=== PATIENT | female | born 1995 | race African-American/Black ===

== ENCOUNTER 2017-10-22 10:16 | Emergency (ER) | payer OTHER ==
[~2017-10-22] VITALS: Ht 160 cm; Wt 86.2 kg
[~2017-10-22 10:16] MED LIST: CIPRO500 MG PO; NAPROSYN500 MG PO; TYLENOL EX-STR500 M2 PO
[2017-10-22 11:04] LABS: ABSOLUTE NEUTROPHILS 9.3 thou/uL (1.4-8.2); BASOPHILS 0.6 % (0.0-2.0); EOSINOPHILS 0.8 % (0.0-3.0); HEMATOCRIT 40.1 % (37.0-47.0); HEMOGLOBIN 12.5 gm/dL (12.0-15.0); LYMPHOCYTES 20.6 % (24.0-44.0); MCH 24.6 pg (26.0-34.0); MCHC 31.2 g/dL (28.0-37.0); MCV 78.9 fL (80.0-100.0); MONOCYTES 5.9 % (1.0-8.0); POLYS 72.1 % (36.0-66.0); RBC 5.08 mil/uL (4.20-5.00); RDW 14.3 % (10.5-14.5); WBC 13.6 thou/uL (4.0-11.0)
[2017-10-22 11:08] LABS: URINE BILIRUBIN NEGATIVE (Negative); URINE BLOOD NEGATIVE (Negative); URINE COLOR YELLOW; URINE GLUCOSE-RANDOM* NEGATIVE (Negative); URINE KETONES NEGATIVE (Negative); URINE LEUKOCYTES-REFLEX NEGATIVE (Negative); URINE PROTEIN (DIPSTICK) NEGATIVE (Negative); URINE UROBILINOGEN 0.2 E.U./dl (0.2-1.0)
[2017-10-22 11:10] LABS: MANUAL DIFF NO
[2017-10-22 11:11] LABS: CALCIUM 9.2 mg/dL (8.5-10.1); CREATININE 0.8 mg/dL (0.6-1.0); POTASSIUM 4.1 mmol/L (3.5-5.1)
[2017-10-22 11:17] LABS: ALBUMIN 3.7 g/dL (3.4-5.0); TOTAL BILIRUBIN 0.2 mg/dL (<0.1-1.0); TOTAL PROTEIN 7.6 g/dL (6.4-8.2)
[2017-10-22 12:15] LABS: PLATELET COUNT 215 thou/uL (150-400)
[2017-10-22] MEDS ORDERED: BENTYL 20 MG TA20 M1 PO (12:35)
[2017-10-22] MEDS ORDERED: ZOFRAN ODT4 M1 PO (12:35)
[2017-10-22 13:15] VITALS: BP 114/78
== END 2017-10-22 13:15 | disposition home or self-care (01) ==
LOC: ER 10:16
PROVIDERS: Physician Assistant
DX: R10.30 Lower abdominal pain, unspecified (principal); F17.210 Nicotine dependence, cigarettes, uncomplicated

== ENCOUNTER 2018-10-29 15:46 | Emergency (ER) | payer OTHER ==
[~2018-10-29] VITALS: Ht 157.5 cm; Wt 78.6 kg
[~2018-10-29 15:46] MED LIST changes: +BENTYL 10 MG CA10 M1 PO; +BENTYL 20 MG TA20 M1 PO; +ONDANSETRON HCL4 M2 PO; +ZOFRAN ODT4 M1 PO
[2018-10-29 16:32] LABS: ABSOLUTE NEUTROPHILS 13.9 thou/uL (1.4-8.2); BASOPHILS 0.2 % (0.0-2.0); EOSINOPHILS 0.1 % (0.0-3.0); HEMATOCRIT 38.8 % (37.0-47.0); HEMOGLOBIN 12.5 gm/dL (12.0-15.0); LYMPHOCYTES 5.3 % (24.0-44.0); MCH 25.7 pg (26.0-34.0); MCHC 32.3 g/dL (28.0-37.0); MCV 79.6 fL (80.0-100.0); MONOCYTES 3.2 % (1.0-8.0); PLATELET COUNT 249 thou/uL (150-400); POLYS 91.2 % (36.0-66.0); RBC 4.88 mil/uL (4.20-5.00); RDW 15.1 % (10.5-14.5); WBC 15.2 thou/uL (4.0-11.0)
[2018-10-29 16:38] LABS: CALCIUM 8.9 mg/dL (8.5-10.1); CREATININE 0.7 mg/dL (0.6-1.0); POTASSIUM 3.5 mmol/L (3.5-5.1)
[2018-10-29 16:44] LABS: ALBUMIN 3.5 g/dL (3.4-5.0); TOTAL BILIRUBIN 0.4 mg/dL (<0.1-1.0); TOTAL PROTEIN 7.3 g/dL (6.4-8.2)
[2018-10-29 17:05] LABS: URINE CLARITY CLEAR; URINE COLOR YELLOW; URINE GLUCOSE-RANDOM* NEGATIVE (Negative); URINE KETONES 2+ (Negative); URINE PROTEIN (DIPSTICK) NEGATIVE (Negative)
[2018-10-29 17:06] LABS: URINE BILIRUBIN NEGATIVE (Negative); URINE BLOOD NEGATIVE (Negative); URINE LEUKOCYTES-REFLEX TRACE (Negative); URINE NITRITE-REFLEX NEGATIVE (Negative); URINE UROBILINOGEN 0.2 E.U./dl (0.2-1.0)
[2018-10-29 17:11] LABS: AMP/METHAMP Negative (Negative); BARBITURATES Negative (Negative); BENZODIAZEPINES Negative (Negative); COCAINE Negative (Negative); METHADONE Negative (Negative); OPIATES Negative (Negative); PCP Negative (Negative)
[2018-10-29] MEDS ORDERED: FLAGYL500 M1 PO (21:01)
[2018-10-29 21:19] VITALS: BP 107/60
== END 2018-10-29 21:19 | disposition home or self-care (01) ==
LOC: ER 15:46
PROVIDERS: Physician Assistant
DX: R11.2 Nausea with vomiting, unspecified (principal); O36.4XX0 Maternal care for intrauterine death, not applicable or unspecified; O23.591 Infection of other part of genital tract in pregnancy, first trimester; O26.891 Other specified pregnancy related conditions, first trimester; A59.01 Trichomonal vulvovaginitis; R10.9 Unspecified abdominal pain; Z3A.08 8 weeks gestation of pregnancy; F17.210 Nicotine dependence, cigarettes, uncomplicated

== ENCOUNTER 2018-11-03 11:51 | Emergency (ER) | payer OTHER ==
[~2018-11-03] VITALS: Ht 160 cm; Wt 72.6 kg
[~2018-11-03 11:51] MED LIST changes: +FLAGYL500 M1 PO
[2018-11-03 12:12] LABS: URINE CLARITY HAZY; URINE COLOR YELLOW; URINE GLUCOSE-RANDOM* NEGATIVE (Negative); URINE KETONES TRACE (Negative); URINE PROTEIN (DIPSTICK) TRACE (Negative); URINE SPECIFIC GRAVITY 1.025 (1.005-1.035)
[2018-11-03 12:13] LABS: URINE BILIRUBIN NEGATIVE (Negative); URINE BLOOD 3+ (Negative); URINE LEUKOCYTES-REFLEX NEGATIVE (Negative); URINE NITRITE-REFLEX NEGATIVE (Negative)
[2018-11-03 12:18] LABS: SQUAMOUS 0-3 Few /LPF (0-3); URINE WBC-REFLEX 0-5 Rare /HPF (0-5)
[2018-11-03 12:19] LABS: CASTS None Seen /LPF (None Seen); CRYSTALS None Seen /LPF (None Seen); MUCUS 0-3 Light strn/LPF (None Seen); URINE RBC >20 Many /HPF (0-2)
[2018-11-03 12:29] LABS: ABSOLUTE NEUTROPHILS 8.3 thou/uL (1.4-8.2); BASOPHILS 0.8 % (0.0-2.0); EOSINOPHILS 0.5 % (0.0-3.0); HEMATOCRIT 40.7 % (37.0-47.0); HEMOGLOBIN 12.9 gm/dL (12.0-15.0); LYMPHOCYTES 19.9 % (24.0-44.0); MCHC 31.7 g/dL (28.0-37.0); MCV 78.8 fL (80.0-100.0); MONOCYTES 8.4 % (1.0-8.0); PLATELET COUNT 284 thou/uL (150-400); POLYS 70.4 % (36.0-66.0); RBC 5.16 mil/uL (4.20-5.00); RDW 14.9 % (10.5-14.5); WBC 11.8 thou/uL (4.0-11.0)
[2018-11-03 12:37] LABS: CALCIUM 9.2 mg/dL (8.5-10.1); CREATININE 0.7 mg/dL (0.6-1.0); POTASSIUM 3.7 mmol/L (3.5-5.1)
[2018-11-03 15:58] VITALS: BP 112/71
[2018-11-03] MEDS ORDERED: MISOPROSTOL 2200 MC1 PO (16:45)
[2018-11-03] MEDS ORDERED: NORCO 5-325 TA1 EACH PO (16:46)
== END 2018-11-03 19:32 | disposition home or self-care (01) ==
LOC: ER 11:51
PROVIDERS: Physician Assistant
DX: O36.4XX0 Maternal care for intrauterine death, not applicable or unspecified (principal); Z3A.00 Weeks of gestation of pregnancy not specified

== ENCOUNTER 2019-03-31 13:00 | Emergency (ER) | payer OTHER ==
[~2019-03-31] VITALS: Ht 157.5 cm; Wt 68.0 kg
[~2019-03-31 13:00] MED LIST changes: +MISOPROSTOL 2200 MC1 PO; +NORCO 5-325 TA1 EACH PO
[2019-03-31 14:20] VITALS: BP 109/65
[2019-03-31] MEDS ORDERED: IBUPROFEN 600600 M1 PO (14:20)
== END 2019-03-31 14:20 | disposition home or self-care (01) ==
LOC: ER 13:00
DX: S80.02XA Contusion of left knee, initial encounter (principal); F17.210 Nicotine dependence, cigarettes, uncomplicated; W01.0XXA Fall on same level from slipping, tripping and stumbling without subsequent striking against object, initial encounter; Y93.89 Activity, other specified; Y92.89 Other specified places as the place of occurrence of the external cause; Y99.8 Other external cause status

== ENCOUNTER 2019-12-21 01:25 | Emergency (ER) | payer OTHER ==
[~2019-12-21] VITALS: Ht 162.6 cm; Wt 90.7 kg
[~2019-12-21 01:25] MED LIST changes: +IBUPROFEN 600600 M1 PO
[2019-12-21] MEDS ORDERED: DAYTIME COLD-F118 ML (01:35)
[2019-12-21] MEDS ORDERED: TRAMADOL 50 MG50 MG PO (02:15)
[2019-12-21] MEDS ORDERED: NAPROSYN500 MG PO (02:15)
[2019-12-21] MEDS ORDERED: TESSALON PERLE100 MG PO (02:15)
[2019-12-21 02:57] VITALS: BP 120/94
== END 2019-12-21 02:57 | disposition home or self-care (01) ==
LOC: ER 01:25
DX: J10.1 Influenza due to other identified influenza virus with other respiratory manifestations (principal); F17.290 Nicotine dependence, other tobacco product, uncomplicated

== ENCOUNTER 2020-01-25 08:26 | Inpatient (IN) | payer OTHER ==
[~2020-01-25] VITALS: Ht 160 cm; Wt 87.1 kg
[~2020-01-25 08:26] MED LIST changes: +DAYTIME COLD-F118 ML; +TESSALON PERLE100 MG PO; +TRAMADOL 50 MG50 MG PO
[2020-01-25 08:37] VITALS: BP 133/97
[2020-01-25 09:07] LABS: URINE BILIRUBIN NEGATIVE (Negative); URINE BLOOD NEGATIVE (Negative); URINE CLARITY CLEAR; URINE COLOR YELLOW; URINE GLUCOSE-RANDOM* NEGATIVE (Negative); URINE KETONES NEGATIVE (Negative); URINE LEUKOCYTES-REFLEX NEGATIVE (Negative); URINE NITRITE-REFLEX NEGATIVE (Negative); URINE PROTEIN (DIPSTICK) NEGATIVE (Negative); URINE UROBILINOGEN 0.2 E.U./dl (0.2-1.0)
[2020-01-25 09:54] LABS: ABSOLUTE NEUTROPHILS 8.2 thou/uL (1.4-8.2); BASOPHILS 0.8 % (0.0-2.0); EOSINOPHILS 0.8 % (0.0-3.0); HEMATOCRIT 41.2 % (37.0-47.0); HEMOGLOBIN 12.8 gm/dL (12.0-15.0); LYMPHOCYTES 17.4 % (24.0-44.0); MCH 24.9 pg (26.0-34.0); MCHC 31.1 g/dL (28.0-37.0); MONOCYTES 7.6 % (1.0-8.0); PLATELET COUNT 251 thou/uL (150-400); POLYS 73.4 % (36.0-66.0); RBC 5.15 mil/uL (4.20-5.00); RDW 15.7 % (10.5-14.5); WBC 11.1 thou/uL (4.0-11.0)
[2020-01-25 10:22] LABS: CALCIUM 8.7 mg/dL (8.5-10.1); CREATININE 0.7 mg/dL (0.6-1.0); POTASSIUM 5.2 mmol/L (3.5-5.1)
[2020-01-25 10:27] LABS: ALBUMIN 3.2 g/dL (3.4-5.0); TOTAL PROTEIN 6.7 g/dL (6.4-8.2)
[2020-01-25 10:28] LABS: TOTAL BILIRUBIN 0.3 mg/dL (<0.1-1.0)
[2020-01-25 12:32] VITALS: BP 133/82
[2020-01-25 12:40] VITALS: BP 112/67
[2020-01-25 19:20] VITALS: BP 109/57
[2020-01-26 04:15] VITALS: BP 99/50
[2020-01-26 05:28] LABS: HEMATOCRIT 34.7 % (37.0-47.0); HEMOGLOBIN 10.9 gm/dL (12.0-15.0); MCH 25.1 pg (26.0-34.0); MCHC 31.5 g/dL (28.0-37.0); MCV 79.7 fL (80.0-100.0); RBC 4.35 mil/uL (4.20-5.00); RDW 15.3 % (10.5-14.5); WBC 9.1 thou/uL (4.0-11.0)
[2020-01-26 05:37] LABS: ALBUMIN 2.7 g/dL (3.4-5.0); CREATININE 0.7 mg/dL (0.6-1.0); PHOSPHORUS 3.2 mg/dL (2.5-4.9)
[2020-01-26 05:50] LABS: POTASSIUM 3.5 mmol/L (3.5-5.1)
[2020-01-26] MEDS ORDERED: MIRALAX17 GM PO (09:29)
[2020-01-26] MEDS ORDERED: COLACE 100 MG100 MG PO (09:29)
[2020-01-26] MEDS ORDERED: ACETAMINOPHEN325 M1 PO (09:29)
[2020-01-26] MEDS ORDERED: IBUPROFEN 200200 M1 PO (09:29)
[2020-01-26] MEDS ORDERED: OXYCODONE HCL 55 MG PO (09:30)
[2020-01-26 14:06] VITALS: BP 99/50
[2020-01-26 14:22] VITALS: BP 99/50
--- NOTE | 2020-01-27 16:07 | PATH ---
[facility] [address] [place] [address] PATHOLOGY RPT PROCEDURE Name: CALIXTO DEUTSCH Room #: 439-P DIS IN M.R.#: [id number] Admission: 01/25/20 Date of : 89 Discharge: 01/26/20 Report #: [id number] Path Case #: [id number] [facility] Accession Number: [id number] . 01 Material submitted: . gallbladder - GALLBLADDER . 01 Clinical history: . Acute cholecystitis with cholelithiasis . 02 Diagnosis: Gallbladder, cholecystectomy: - Mild chronic cholecystitis. - Cholelithiasis. - Reactive lymph node. . (IUV:mml; 01/27/2020) QLM 01/27/2020 1256 Local . 02 Electronically signed: . Lisa Aranda MD, Pathologist NPI- [id number] . 01 Gross description: . The specimen is received in formalin, labeled "Calixto Deutsch, gallbladder". Received is an intact gallbladder measuring 7.0 x 2.2 x 1.5 cm in greatest dimensions displaying a pink-ball serosal surface. Opening the specimen reveals a velvety, pink-ball mucosa with a gallbladder wall thickness of up to 0.2 cm. The lumen of the gallbladder is filled with blood-tinged mucoid material. A single calculus is identified within the cystic neck displaying a black and granular appearance, and no masses or lesions are noted grossly. Toward the proximal margin, a single lymph node is identified measuring 0.8 cm in maximum dimensions. [employer]st sections, to include the proximal margin and bisected lymph node, are submitted in cassette A1. (CAA; 01/26/2020) QAC/QAC 01/26/2020 1507 Local . 02 Pathologist provided ICD-10: K80.10 . 02 CPT . 873780 Specimen Comment: A courtesy copy of this report has been sent to [phone] Specimen Comment: Report sent to Performed at: 01 [place] [address] PATHOLOGY RPT PROCEDURE Name: CALIXTO DEUTSCH JENNIFER Room #: 439-P DIS IN M.R.#: [id number] Admission: 01/25/20 Date of : 89 Discharge: 01/26/20 Report #: [id number] Path Case #: [id number] [address] [facility] [address], [place], [place] [id number] MD Alejandro Pastrana MD Phone: [phone] Performed at: [address] [id number] MD Lisa Aranda MD Phone: [phone]
== END 2020-01-26 15:53 | disposition home or self-care (01) | DRG 419 ==
LOC: ER 08:26 → EROBS 11:53 → 4S 12:40 → TBA 13:04 → 4S 13:15
PROVIDERS: Emergency Medicine; ADMIT Surgery
PROC: 0FT44ZZ Resection of Gallbladder, Percutaneous Endoscopic Approach (ICD-10-PCS; principal; 2020-01-26)
DX: K81.0 Acute cholecystitis (principal); Z87.891 Personal history of nicotine dependence; E66.9 Obesity, unspecified; Z68.34 Body mass index [BMI] 34.0-34.9, adult
CPT/HCPCS: 10100; 50010

== ENCOUNTER 2020-07-06 23:58 | Emergency (ER) | payer OTHER ==
[~2020-07-06] VITALS: Ht 160 cm; Wt 81.7 kg
[~2020-07-06 23:58] MED LIST changes: +ACETAMINOPHEN325 M1 PO; +COLACE 100 MG100 MG PO; +IBUPROFEN 200200 M1 PO; +MIRALAX17 GM PO; +OXYCODONE HCL 55 MG PO
[2020-07-07] MEDS ORDERED: ADVIL200 M1 PO (00:07)
[2020-07-07] MEDS ORDERED: APAP W/CODEINE1 TA2 PO (01:04)
[2020-07-07 01:35] VITALS: BP 113/68
== END 2020-07-07 01:36 | disposition home or self-care (01) ==
LOC: ER 23:58
DX: K08.89 Other specified disorders of teeth and supporting structures (principal); F17.210 Nicotine dependence, cigarettes, uncomplicated

== ENCOUNTER 2020-10-24 11:43 | Emergency (ER) | payer OTHER ==
[~2020-10-24] VITALS: Ht 160 cm; Wt 86.2 kg
[~2020-10-24 11:43] MED LIST changes: +ADVIL200 M1 PO; +APAP W/CODEINE1 TA2 PO
[2020-10-24 11:52] VITALS: BP 138/90
[2020-10-24] MEDS ORDERED: NORFLEX100 MG PO (16:16)
[2020-10-24] MEDS ORDERED: NAPROSYN500 MG PO (16:16)
== END 2020-10-24 16:19 | disposition home or self-care (01) ==
LOC: ER 11:43
DX: S39.012A Strain of muscle, fascia and tendon of lower back, initial encounter (principal); S29.012A Strain of muscle and tendon of back wall of thorax, initial encounter; F17.210 Nicotine dependence, cigarettes, uncomplicated; Z90.49 Acquired absence of other specified parts of digestive tract; Z79.899 Other long term (current) drug therapy; V49.49XA Driver injured in collision with other motor vehicles in traffic accident, initial encounter; Y93.I9 Activity, other involving external motion; Y92.488 Other paved roadways as the place of occurrence of the external cause; Y99.8 Other external cause status